=== PATIENT | male | born 1950 | race Caucasian/White ===

== ENCOUNTER 2018-07-18 19:59 | Emergency (ER) | payer MEDICARE, OTHER ==
[2018-07-18 20:40] LABS: HEMATOCRIT 52.8 % (39.0-50.0); HEMOGLOBIN 18.3 g/dl (14.0-18.0); IMMATURE GRANULOCYTES 0.3 % (0.0-5.0); MEAN CELL VOLUME 88.9 fL CALC (80.0-100.0); MEAN CORPUSCULAR HGB 30.8 pG CALC (26.0-32.0); MEAN CORPUSCULAR HGB CONC 34.7 g/L CALC (32.0-36.0); NEUT# 5.3 thou/uL (1.82-7.42); RED BLOOD COUNT 5.94 mill/uL (4.70-6.10); RED CELL DISTRI WIDTH 13.2 % (11.5-15.5)
[2018-07-18 20:52] LABS: ALBUMIN 4.9 g/dL (3.2-5.0); ALKALINE PHOSPHATASE 83 u/l (38-126); AMYLASE 99 u/l (30-110); ANION GAP 17 (6-22 (CALC)); BILIRUBIN, TOTAL 0.9 mg/dL (0.0-1.4); BUN 16 mg/dL (8-23); BUN/CREATININE RATIO 22 (12-20 (CALC)); CARBON DIOXIDE 27 mmol/l (22-30); CHLORIDE 102 mmol/l (95-108); CREATININE 0.7 mg/dL (0.7-1.3); GFR > 60 ML/MIN (>=60 (CALC)); GFR FOR AFR.AMER. > 60 ML/MIN (>=60 (CALC)); LIPASE 208 u/l (23-300); POTASSIUM 4.1 mmol/l (3.5-5.1); SGOT/AST 32 u/l (19-48); SODIUM 141 mmol/l (137-146)
[2018-07-18 20:54] LABS: TOTAL PROTEIN 8.7 g/dL (6.3-8.2)
[2018-07-18 21:00] LABS: ACT PARTIAL THROMBO TIME 32.1 SECONDS (20.0-32.5); D-DIMER 0.17 mg/L (0.19-0.60); INTERNATIONAL NORMALIZED RATIO 1.2 RATIO (0.7-1.3); PROTHROMBIN TIME 12.3 SECONDS (9.0-12.5)
[2018-07-18 21:03] LABS: MYOGLOBIN 35 ng/mL (0 - 121)
[2018-07-19 00:04] VITALS: BP 97/58
[2018-07-19] MEDS ORDERED: METOPROLOL TART75 MG PO (00:07)
[2018-07-19] MEDS ORDERED: ELIQUIS5 MG PO (00:08)
== END 2018-07-18 23:45 | disposition home or self-care (01) ==
LOC: ED 19:59
PROVIDERS: Family Medicine
DX: R10.11 Right upper quadrant pain (principal); R10.13 Epigastric pain; I10 Essential (primary) hypertension; I25.10 Atherosclerotic heart disease of native coronary artery without angina pectoris; I48.91 Unspecified atrial fibrillation; R07.9 Chest pain, unspecified
CPT/HCPCS: Q9967

== ENCOUNTER 2019-03-01 07:36 | Emergency (ER) | payer MEDICARE, OTHER ==
[~2019-03-01] VITALS: Ht 182.9 cm; Wt 102.0 kg
[~2019-03-01 07:36] MED LIST: ELIQUIS5 MG PO; METOPROLOL TART75 MG PO
[2019-03-01 11:07] VITALS: BP 124/74
== END 2019-03-01 11:07 | disposition home or self-care (01) ==
LOC: ED 07:36
DX: T40.4X1A Poisoning by other synthetic narcotics, accidental (unintentional), initial encounter (principal); I10 Essential (primary) hypertension; I48.91 Unspecified atrial fibrillation; G62.9 Polyneuropathy, unspecified; Y92.009 Unspecified place in unspecified non-institutional (private) residence as the place of occurrence of the external cause

== ENCOUNTER 2021-10-07 23:09 | Emergency (ER) | payer MEDICARE, OTHER ==
[~2021-10-07] VITALS: Ht 182.9 cm; Wt 105.0 kg
[2021-10-07 23:26] VITALS: BP 208/115
[2021-10-07 23:34] VITALS: BP 199/111
[2021-10-07 23:49] LABS: HEMATOCRIT 51.2 % (39.0-50.0); HEMOGLOBIN 17.2 g/dl (14.0-18.0); IMMATURE GRANULOCYTES 0.2 % (0.0-5.0); MEAN CORPUSCULAR HGB 30.2 pG CALC (26.0-32.0); MEAN CORPUSCULAR HGB CONC 33.6 g/dL CAL (32.0-36.0); NEUT# 5.1 thou/uL (1.82-7.42); RED BLOOD COUNT 5.69 mill/uL (4.70-6.10); RED CELL DISTRI WIDTH 12.9 % (11.5-15.5)
[2021-10-07 23:58] LABS: ALBUMIN 4.6 g/dL (3.2-5.0); ALKALINE PHOSPHATASE 76 u/l (38-126); AMYLASE 83 u/l (30-110); ANION GAP 16 (6-22 (CALC)); BUN 13 mg/dL (8-23); BUN/CREATININE RATIO 11 (12-20 (CALC)); CARBON DIOXIDE 29 mmol/l (22-30); CHLORIDE 101 mmol/l (95-108); CREATININE 1.2 mg/dL (0.7-1.3); GFR 60 ML/MIN (>=60 (CALC)); GFR FOR AFR.AMER. > 60 ML/MIN (>=60 (CALC)); LIPASE 133 u/l (23-300); POTASSIUM 3.7 mmol/l (3.5-5.1); SGOT/AST 48 u/l (19-48); SODIUM 142 mmol/l (137-146); TOTAL PROTEIN 8.3 g/dL (6.3-8.2)
[2021-10-08] VITALS (12 sets, daily range): BP systolic 156–187; BP diastolic 81–102
[2021-10-08 00:08] LABS: MYOGLOBIN 94 ng/mL (0 - 121)
[2021-10-08 01:00] LABS: URINE BILIRUBIN - DIPSTICK NEGATIVE (NEGATIVE); URINE BLOOD DIPSTICK TRACE-INTACT (NEGATIVE); URINE COLOR YELLOW; URINE GLUCOSE - DIPSTICK NEGATIVE (NEGATIVE); URINE KETONE NEGATIVE (NEGATIVE); URINE LEUK ESTERASE NEGATIVE (NEGATIVE); URINE NITRITE - DIPSTICK NEGATIVE (Negative); URINE PH 7.5 (4.5-8.0); URINE PROTEIN - DIPSTICK 30 mg/dL (NEG-TRACE); URINE SPECIFIC GRAVITY 1.015; URINE UROBILINOGEN - DIPSTICK 0.2 E.U./dL (0.2)
[2021-10-08 01:02] LABS: URINE SQUAMOUS EPITHELIAL CELL FEW EPI/hpf (0-FEW); URINE WBC 0-2 WBC/hpf (0-5)
[2021-10-08] MEDS ORDERED: PREVACID30 M3 PO (02:20)
[2021-10-08] MEDS ORDERED: LORTAB 1010 MG PO (02:20)
[2021-10-08] MEDS ORDERED: ONDANSETRON4 MG PO (02:20)
== END 2021-10-08 03:15 | disposition home or self-care (01) ==
LOC: ED 23:09
PROVIDERS: Emergency Medicine
DX: K80.20 Calculus of gallbladder without cholecystitis without obstruction (principal); I10 Essential (primary) hypertension; I48.91 Unspecified atrial fibrillation; G62.9 Polyneuropathy, unspecified
CPT/HCPCS: Q9967; S0164

== ENCOUNTER 2021-10-10 17:04 | Observation (INO) | payer MEDICARE, OTHER ==
[~2021-10-10] VITALS: Ht 182.9 cm; Wt 100.0 kg
[2021-10-10] VITALS (8 sets, daily range): BP systolic 95–140; BP diastolic 48–78
[~2021-10-10 17:04] MED LIST changes: +LORTAB 1010 MG PO; +ONDANSETRON4 MG PO; +PREVACID30 M3 PO
[2021-10-10 18:26] LABS: HEMATOCRIT 49.6 % (39.0-50.0); HEMOGLOBIN 16.9 g/dl (14.0-18.0); IMMATURE GRANULOCYTES 0.3 % (0.0-5.0); MEAN CELL VOLUME 90.3 fL CALC (80.0-100.0); MEAN CORPUSCULAR HGB 30.8 pG CALC (26.0-32.0); MEAN CORPUSCULAR HGB CONC 34.1 g/dL CAL (32.0-36.0); NEUT# 9.92 thou/uL (1.82-7.42); RED BLOOD COUNT 5.49 mill/uL (4.70-6.10)
[2021-10-10 18:44] LABS: ALBUMIN 4.2 g/dL (3.2-5.0); AMYLASE 62 u/l (30-110); ANION GAP 14 (6-22 (CALC)); BUN 13 mg/dL (8-23); BUN/CREATININE RATIO 15 (12-20 (CALC)); CARBON DIOXIDE 26 mmol/l (22-30); CHLORIDE 101 mmol/l (95-108); CREATININE 0.9 mg/dL (0.7-1.3); GFR > 60 ML/MIN (>=60 (CALC)); GFR FOR AFR.AMER. > 60 ML/MIN (>=60 (CALC)); LIPASE 85 u/l (23-300); POTASSIUM 3.3 mmol/l (3.5-5.1); SODIUM 137 mmol/l (137-146); TOTAL PROTEIN 7.9 g/dL (6.3-8.2)
[2021-10-10 18:46] LABS: ACT PARTIAL THROMBO TIME 29.9 SECONDS (20.0-32.5); ALKALINE PHOSPHATASE 128 u/l (38-126); BILIRUBIN, TOTAL 2.9 mg/dL (0.0-1.4); INTERNATIONAL NORMALIZED RATIO 1.2 RATIO (0.7-1.3); PROTHROMBIN TIME 12.1 SECONDS (9.0-12.5); SGOT/AST 179 u/l (19-48)
[2021-10-11 04:20] VITALS: BP 121/57
[2021-10-11 05:52] LABS: HEMOGLOBIN 15.6 g/dl (14.0-18.0); MEAN CELL VOLUME 91.1 fL CALC (80.0-100.0); MEAN CORPUSCULAR HGB 30.9 pG CALC (26.0-32.0); MEAN CORPUSCULAR HGB CONC 33.9 g/dL CAL (32.0-36.0); RED BLOOD COUNT 5.05 mill/uL (4.70-6.10); RED CELL DISTRI WIDTH 13.1 % (11.5-15.5)
[2021-10-11 06:18] LABS: ANION GAP 15 (6-22 (CALC)); BUN 20 mg/dL (8-23); BUN/CREATININE RATIO 16 (12-20 (CALC)); CARBON DIOXIDE 26 mmol/l (22-30); CHLORIDE 101 mmol/l (95-108); CREATININE 1.2 mg/dL (0.7-1.3); GFR 60 ML/MIN (>=60 (CALC)); GFR FOR AFR.AMER. > 60 ML/MIN (>=60 (CALC)); MAGNESIUM 2.1 mg/dL (1.6-2.3); POTASSIUM 3.5 mmol/l (3.5-5.1); SODIUM 138 mmol/l (137-146)
[2021-10-11 09:32] VITALS: BP 104/59
[2021-10-11 11:28] LABS: URINE BLOOD DIPSTICK SMALL (NEGATIVE); URINE GLUCOSE - DIPSTICK 100 mg/dL (NEGATIVE); URINE KETONE TRACE mg/dL (NEGATIVE); URINE LEUK ESTERASE NEGATIVE (Negative); URINE NITRITE - DIPSTICK POSITIVE (Negative); URINE PROTEIN - DIPSTICK 30 mg/dL (NEG-TRACE); URINE SPECIFIC GRAVITY 1.025; URINE UROBILINOGEN - DIPSTICK >=8.0 E.U./dL (0.2)
[2021-10-11 11:31] LABS: URINE BACTERIA FEW hpf; URINE BILIRUBIN - DIPSTICK LARGE (NEGATIVE); URINE CLARITY SL CLOUDY; URINE COLOR ORANGE; URINE EPITHELIAL CELLS FEW EPI/hpf (0-FEW); URINE MUCUS MODERATE hpf (NONE-FEW)
== END 2021-10-11 15:00 | disposition left against medical advice (07) ==
LOC: ED 17:04 → ED-I 19:28 → MS2 19:34 → ED 19:34 → MS2 10-11 15:00
PROVIDERS: ADMIT Hospitalist; ATTEND Hospitalist
DX: K80.00 Calculus of gallbladder with acute cholecystitis without obstruction (principal); I10 Essential (primary) hypertension; I48.91 Unspecified atrial fibrillation; G62.9 Polyneuropathy, unspecified; I25.2 Old myocardial infarction; Z79.01 Long term (current) use of anticoagulants; Z20.822 Contact with and (suspected) exposure to COVID-19
CPT/HCPCS: J1650

== ENCOUNTER 2022-08-07 18:18 | Emergency (ER) | payer MEDICARE, OTHER ==
[~2022-08-07] VITALS: Ht 182.9 cm; Wt 115.0 kg
[2022-08-07] VITALS (7 sets, daily range): BP systolic 118–131; BP diastolic 76–83
[2022-08-07] MEDS ORDERED: (None)3.5 GM OD (19:06)
[2022-08-07] MEDS ORDERED: GENTAMICIN SULF5 ML OD (19:06)
== END 2022-08-07 23:44 | disposition home or self-care (01) ==
LOC: ED 18:18
DX: H10.9 Unspecified conjunctivitis (principal); I48.91 Unspecified atrial fibrillation; I10 Essential (primary) hypertension; I25.2 Old myocardial infarction